=== PATIENT | male | born 1970 | race Caucasian/White ===

== ENCOUNTER → 2023-03-09 21:55 | Outpatient (CLI) | payer BC, SELFPAY | PROVIDERS: PCP Nurse Practitioner; Visit Provider Nurse Practitioner | DX: J02.9 Acute pharyngitis, unspecified (principal); R05.9 Cough, unspecified ==

== ENCOUNTER 2024-02-16 19:01 | Outpatient (CLI) | payer OTHER, SELFPAY ==
[2024-02-16 19:23] LABS: Basophils # 0.1 K/mm3 (0-0.2); Basophils % 0.7 % (0.1-2.0); Eosinophils # 0.2 K/mm3 (0.0-0.4); Eosinophils % 3.1 % (0.1-12.0); Hematocrit 46.8 % (42.0-52.0); Hemoglobin 14.4 g/dL (14.1-18.0); Mean Corpuscular HGB Conc 30.8 g/dL (31.8-35.4); Mean Corpuscular Hemoglobin 31.5 pg (27.0-31.2); Mean Corpuscular Volume 102.2 fl (80-94); Mean Platelet Volume 8.8 fl (7.4-10.4); Monocytes # 0.3 K/mm3 (0.1-1.0); Monocytes % 4.5 % (1.7-9.3); Neutrophils % 61.8 % (37.0-80.0); Platelet Count 312 K/mm3 (142-424); Red Blood Count 4.58 M/mm3 (4.60-6.20); Red Cell Distribution Width 13.8 % (11.5-17.5); White Blood Count 6.5 K/mm3 (4.8-10.8)
[2024-02-16 20:00] LABS: Alanine Aminotransferase 29 U/L (12-78); Albumin/Globulin Ratio 1.3 (1.1-1.8); Alkaline Phosphatase 50 U/L (38-126); Anion Gap 8.3 mEq/L (5-15); Aspartate Amino Transferase 23 U/L (17-59); Bilirubin,Total 0.6 mg/dl (0.2-1.3); Blood Urea Nitrogen 23 mg/dl (9-20); Calcium 9.2 mg/dl (8.4-10.2); Carbon Dioxide 29 mmol/L (22.0-30.0); Chloride 107 mmol/L (98-107); Chol/HDL Ratio 6.1 (1-3.5); Cholesterol 225 mg/dl (140-200); Estimated Glomerular Filt Rate 78 ml/min (>60); GFR (African American) 94 ML/MIN (>60); Globulin 3.1 g/dL (1.3-3.2); Glucose 110 mg/dl (74-100); HDL Cholesterol 37 mg/dl (40-60); Potassium 4.3 mmoL/L (3.5-5.1); Sodium 140 mmol/L (136-145); Total Protein,Serum 7.1 g/dl (6.3-8.2); Triglycerides 128 mg/dl (30-150); VLDL Cholesterol 26 mg/dL (0-40)
[2024-02-16 20:10] LABS: Hemoglobin A1C 5.1 % (4.0-6.0)
[2024-02-16 20:28] LABS: Direct LDL Cholesterol 143.87 mg/dL (100-129)
[2024-02-16 20:33] LABS: Prostate Specific Ag Screen 0.9 ng/ml (0.0-4.0)
== END 2024-02-16 23:59 | disposition home or self-care (01) ==
LOC: LAB.DROPOF 19:02
PROVIDERS: PCP Nurse Practitioner; Visit Provider Nurse Practitioner
DX: Z13.1 Encounter for screening for diabetes mellitus (principal); Z13.220 Encounter for screening for lipoid disorders; Z12.5 Encounter for screening for malignant neoplasm of prostate; Z13.0 Encounter for screening for diseases of the blood and blood-forming organs and certain disorders involving the immune mechanism; Z13.29 Encounter for screening for other suspected endocrine disorder
CPT/HCPCS: 80050; 80053; 80061; 83036; 84443; 85025; G0103

== ENCOUNTER 2025-02-20 09:27 | Outpatient (CLI) | payer OTHER, SELFPAY ==
[2025-02-20 16:40] LABS: Hematocrit 44.5 % (42.0-52.0); Hemoglobin 14.7 g/dL (14.1-18.0); Immature Granulocytes % 0.2 %; Mean Corpuscular HGB Conc 33.0 g/dL (31.8-35.4); Mean Corpuscular Hemoglobin 30.4 pg (27.0-31.2); Mean Corpuscular Volume 91.9 fl (80-94); Nucleated Red Blood Cells % 0 %; Platelet Count 286 K/mm3 (142-424); Red Blood Count 4.84 M/mm3 (4.60-6.20); Red Cell Distribution Width-SD 43.3 fL; White Blood Count 6.6 K/mm3 (4.8-10.8)
[2025-02-20 18:29] LABS: Alanine Aminotransferase 34 U/L (12-78); Albumin Level 4.8 g/dl (3.5-5.0); Albumin/Globulin Ratio 1.7 (1.1-1.8); Alkaline Phosphatase 60 U/L (38-126); Anion Gap 13.3 mEq/L (5-15); Aspartate Amino Transferase 26 U/L (17-59); Bilirubin,Total 0.7 mg/dl (0.2-1.3); Blood Urea Nitrogen 18 mg/dl (9-20); Calcium 9.6 mg/dl (8.4-10.2); Carbon Dioxide 27 mmol/L (22.0-30.0); Chloride 106 mmol/L (98-107); Cholesterol 237 mg/dl (140-200); Creatinine,Serum 1.10 mg/dl (0.66-1.25); Estimated Glomerular Filt Rate 69 ml/min (>60); GFR (African American) 84 ML/MIN (>60); Globulin 2.9 g/dL (1.3-3.2); Glucose 106 mg/dl (74-100); HDL Cholesterol 36 mg/dl (40-60); Potassium 4.3 mmoL/L (3.5-5.1); Sodium 142 mmol/L (136-145); Total Protein,Serum 7.7 g/dl (6.3-8.2); Triglycerides 164 mg/dl (30-150)
[2025-02-20 18:53] LABS: Hemoglobin A1C 5.2 % (4.0-6.0)
[2025-02-20 19:00] LABS: Thyroid Stimulating Hormone 0.90 uIU/mL (0.465-4.68)
[2025-02-20 19:16] LABS: Hepatitis C Ab Qual. W/ RFX NEGATIVE (Negative)
--- OUTSIDE RECORDS SUMMARY | 2025-02-22 09:29 | XMS_ITS | Clinical Summary ---
Author Organization [facility] Address [address], [address] [place] [address] Care Team Providers Care Band Shover Name Role Phone Unavailable Primary Care Provider Unavailabl e Allergies Active Allergy Reactions Criticality Noted Date Comments Losartan 09/10/2018 Other reaction(s): Myalgia Medications ibuprofen (ADVIL;MOTRIN) 800 MG tabletIndicatio ns:Plantar plate injury, left, initial encounter,Pain in both feet Take 1 tablet by mouth every 8 hours as needed for Pain Take with food or milk. 21 tablet 0 Active Additional Information Patient not taking.Reported on 05/05/2020 Active Problems No known active problems Family History Medical History Relation Name Comments No Known Problems Brother Heart Failure Father Diabetes Mother Heart Attack Mother Relation Name Status Comments Brother Alive Father (Age 69) Mother (Age 75) Social History Tobacco Use Types Packs/Day Years Used Date Smoking Tobacco: Former Cigarettes 1 15 1 0 - 2005 Smokeless Tobacco: Never Tobacco Cessation:Counseling Given: Yes Alcohol Use Standard Drinks/Week Comments Not Currently 0 (1 standard drink = 0.6 oz pur e alcohol) Social Connection and Isolation Panel Answer Date Recorded Frequency of Communication w ith Friends and Family Three times a week 07/02/2019 Frequency of Social Gatherin gs with Friends and Family Three times a week 07/02/2019 Attends Cheondoism Services More than 4 times per year 07/02/2019 Active Member of Clubs or Organizations Yes 07/02/2019 Attends Club or Organization Meetings More than 4 times per year 07/02/2019 Marital Status 07/02/2019 Overall Financial Resource Strain (CARDIA) Answe r Date Recorded Difficulty of Paying Living Expenses Not hard at all 07/02/2019 PHQ-2 Answer Date Recorded PHQ-9 Total Score 0 03/12/2020 [facility] [place] [facility] Occup[facility] ional [facility] - Occupational Stress Questionnaire Answer Date Recorded Feeling of Stress Not at all 07/02/2019 Exercise Vital Sign Answer Date Recorde d Days of Exercise per Week 0 days 2019 Minutes of Exercise per Session 0 min 07/02/2019 Hunger Vital Sign Answer Date Recorded Worried About Running Out of Food in the Last Ye ar Never true 07/02/2019 Ran Out of Food in the Last Year Never true 07/02/2019 PRAPARE - Transportation Answer Date Re corded Lack of Transportation (Medical) No 07/02/2019 Lack of Transportation (Non-Medical) No 07/02/2019 Education Answer Date Recorded What is the highest level of school you have completed or the highest degree you have received? High school graduate 07/02/2019 Sex and Gender Information Value Date Recorded Sex Assigned at Not on file Legal Sex Male 5:39 PM EST Gender Identity Not on file Sexual Orientation Not on file Occupation Industry Job Start Date Job End Date [employer] Not on file Not on file Not on file Last Filed Vital Signs Vital Sign Reading Time Taken Comments Blood Pressure 138/74 05/22/2020 12:03 PM EST Pulse 72 05/22/2020 12:03 PM EST Temperature 36.5 C (97.7 F) 05/22/2020 11:25 AM EST Respiratory Rate 18 03/12/2020 11:00 AM EDT Oxygen Saturation 98% 05/22/2020 11:25 AM EST Inhaled Oxygen Concentration - - Weight 97 kg (213 lb 12.8 oz) 05/22/2020 11:25 A M EST Height 165.1 cm (5' 5 ) 05/22/2020 11:25 AM EST Body Mass Index 35.58 05/22/2020 11:25 AM EST Plan of Treatment Not on file [facility]
--- OUTSIDE RECORDS SUMMARY | 2025-02-22 09:29 | XMS_ITS | Clinical Summary ---
Author Organization [facility] Address [address] [facility] [place] [address] Phone Care Team Providers Care Academic Records Specialist Name Role Phone Unavailable Primary Care Provider Unavailabl e Allergies Active Allergy Reactions Criticality Noted Date Comments Losartan Myalgia High 09/10/2018 Medications pseudoephedrine HCl (SUDAFED ORAL) Take 2 Tabs by mouth as needed. Take Sudafed 12 hour 1 tab daily PRN, if 4 hour is not helping. OTC Active fluticasone propionate (XHANCE) 93 mcg/actuation Nasl Aerosol Breath ActivatedIndica tions:Ear pressure, right 1 [place] by Nasal route 2 times daily. 16 mL 07/14/2020 Active Active Problems No known active problems Surgical History Surgery Date Site/Laterality Comments APPENDECTOMY Medical History Medical History Date Comments Hypertension Kidney stones Family History Medical History Relation Name Comments No Known Problems Brother No Known Problems Father No Known Problems Maternal Grandfather No Known Problems Maternal Grandmother No Known Problems Mother No Known Problems Other No Known Problems Paternal Grandfather No Known Problems Paternal Grandmother No Known Problems Sister Allergies Neg Hx Bleeding Prob Neg Hx Cancer Neg Hx Hearing Loss Neg Hx Heart Disease Neg Hx Migraines Neg Hx Thyroid Disease Neg Hx Relation Name Status Comments Brother Father Maternal Grandfather Maternal Grandmother Mother Other Paternal Grandfather Paternal Grandmother Sister Social History Tobacco Use Types Packs/Day Years Used Date Smoking Tobacco: Former Cigarettes Q uit: 09/10/2005 Smokeless Tobacco: Former Alcohol Use Standard Drinks/Week Comments No 0 (1 standard drink = 0.6 oz pur e alcohol) Sexually Active Control Partners Comments Yes Female Sex and Gender Information Value Date Recorded Sex Assigned at Not on file Legal Sex Male 8:54 AM EDT Gender Identity Not on file Sexual Orientation Not on file Obstetrics History Last Filed Vital Signs Vital Sign Reading Time Taken Comments Blood Pressure 160/82 06/24/2020 7:32 PM EST Pulse 87 06/24/2020 7:32 PM EST Temperature 36.9 C (98.4 F) 07/11/2020 12:43 PM EST Respiratory Rate 18 06/24/2020 7:32 PM EST Oxygen Saturation 98% 06/24/2020 7:32 PM EST Inhaled Oxygen Concentration - - Weight 100.2 kg (221 lb) 08/08/2020 12:35 PM EST Height 165.1 cm (5' 5 ) 08/08/2020 12:35 PM EST Body Mass Index 36.78 08/08/2020 12:35 PM EST Plan of Treatment Health Maintenance Due Date Last Done Comments Annual Wellness Exam 1972 DTaP/TDaP/Td (1 - Tdap) 1988 Hepatitis B Vaccine (1 of 3 - 19+ 3-dose series) 1988 Cologuard 2014 Colon Cancer Screening 2014 Colonoscopy 2014 FIT 2014 Sigmoidoscopy 2014 Virtual Colonography 2014 Pneumococcal Vaccine 50+ (1 of 1 - PCV) 2019 Zoster (1 of 2) 2019 COVID-19 Vaccine (1 - 2023-2 5 season) 2025 Influenza Vaccine (#1) 2025 Meningococcal B Vaccine Aged Out No l onger eligible based on patient's age to complete this topic Insurance [employer] PPO ANTHEM PPO ANTHEM PPO
[2025-02-22 11:12] LABS: Hepatitis B Surface Antigen Negative (Negative)
== END 2025-02-20 23:59 | disposition home or self-care (01) ==
LOC: LAB.DROPOF 02-22 09:28
PROVIDERS: PCP Nurse Practitioner; Visit Provider Nurse Practitioner
DX: Z00.00 Encounter for general adult medical examination without abnormal findings (principal); Z13.220 Encounter for screening for lipoid disorders; Z12.5 Encounter for screening for malignant neoplasm of prostate; Z13.1 Encounter for screening for diabetes mellitus; E66.9 Obesity, unspecified; R73.9 Hyperglycemia, unspecified; E78.5 Hyperlipidemia, unspecified; Z86.39 Personal history of other endocrine, nutritional and metabolic disease; R03.0 Elevated blood-pressure reading, without diagnosis of hypertension; G47.33 Obstructive sleep apnea (adult) (pediatric); Z11.59 Encounter for screening for other viral diseases
CPT/HCPCS: 80053; 80061; 83036; 84443; 85025; 86803; 87340; 87389; G0103